=== PATIENT | female | born 1950 | race Caucasian/White ===

== ENCOUNTER 2017-03-24 05:35 | Observation (INO) | payer OTHER, MEDICARE ==
[2017-03-24] MEDS ORDERED: PHENAZOPYRIDINE HCL 200 MG TAB PO ONE ×2 (05:59→06:00)
[2017-03-24] MEDS ORDERED: ceFAZolin 2 GM/DEXTROSE 100 ML IV ONE ×2 (05:59→06:00)
[2017-03-24] MEDS ORDERED: LR 1,000 ML IV ONE (06:07)
[2017-03-24] MEDS ORDERED: LIDOCAINE 1% 2 ML INJ ID PRN (06:07)
--- NOTE | 2017-03-24 07:14 | PDHPUP ---
History & Physical Update H&P update statement: This history and physical update is based on an assessment of the patient which was completed after admission or registration (within 24 hours), but prior to the surgery/procedure. H&P update: H&P reviewed & patient examined, no change in patient's condition since H&P completed
[2017-03-24] MEDS ORDERED: fentaNYL 100 MCG/2 ML INJ ONE ×2 (07:17→08:15)
[2017-03-24] MEDS ORDERED: MIDAZOLAM 2 MG/2 ML VIAL ONE ×2 (07:18→07:55)
[2017-03-24] MEDS ORDERED: PROPOFOL/EMULSION 500 MG/50 ML BOTTLE IV ONE ×2 (07:18→08:09)
[2017-03-24] MEDS ORDERED: BUPIVACAINE 0.5% 30 ML SDV ONE (07:35)
[2017-03-24] MEDS ORDERED: METOCLOPRAMIDE 10 MG/2 ML VIAL ONE (08:09)
[2017-03-24] MEDS ORDERED: KETOROLAC 30 MG/1 ML SDV ONE (08:09)
[2017-03-24] MEDS ORDERED: LIDOCAINE HCL 160 MG/4 ML LTA KIT TP ONE (08:09)
[2017-03-24] MEDS ORDERED: RANITIDINE 50 MG/2 ML VIAL ONE (08:09)
[2017-03-24] MEDS ORDERED: ONDANSETRON 4 MG/2 ML VIAL ONE (08:09)
[2017-03-24] MEDS ORDERED: ROCURONIUM 100 MG/10 ML VIAL ONE (08:09)
[2017-03-24] MEDS ORDERED: LIDOCAINE 2% 5 ML SDV ONE (08:09)
[2017-03-24] MEDS ORDERED: DEXAMETHASONE 4 MG/ML VIAL ONE (08:09)
[2017-03-24] MEDS ORDERED: epHEDrine SULFATE 10 MG/ML SYR ONE (08:19)
--- NOTE | 2017-03-24 08:22 | PDANEPAE ---
ANE Past Medical History - Cardiovascular History Hx Hypertension: Yes Hx Arrhythmias: No Hx Chest Pain: No Hx Coronary Artery / Peripheral Vascular Disease: No Hx CHF / Valvular Disease: No Hx Palpitations: No - Pulmonary History Hx COPD: No Hx Asthma/Reactive Airway Disease: No Hx Recent Upper Respiratory Infection: No Hx Oxygen in Use at Home: No Hx Sleep Apnea: No Sleep Apnea Screening Result - Last Documented: Negative - Neurologic History Hx Cerebrovascular Accident: No Hx Seizures: No Hx Dementia: No - Endocrine History Hx Diabetes: No - Renal History Hx Renal Disorders: No - Liver History Hx Hepatic Disorders: No - Neurological & Psychiatric Hx Hx Neurological and Psychiatric Disorders: No Neurological / Psychiatric History Comment: mild depression - Cancer History Hx Cancer: No - Congenital Disorder History Hx Congenital Disorders: No - GI History Hx Gastrointestinal Disorders: Yes Gastrointestinal History Comment: reflux - Other Health History Other Health History: none, - Chronic Pain History Chronic Pain: No - Surgical History Prior Surgeries: colonscopy, left hand surgery ANE Review of Systems Review of Systems: - Exercise capacity METS (RN): 4 METS ANE Patient History - Allergies Allergies/Adverse Reactions: adhesive tape Allergy (Verified 03/23/17 13:56) - Home Medications Home Medications: Sertraline HCl [Zoloft 50mg (*)] 50 mg PO HS 12/31/09 [Last Taken 03/23/17 23:00 ] Aspirin [Aspirin 81mg (*)] 81 mg PO DAILY 02/18/17 [Last Taken 03/17/17] Losartan Potassium [Cozaar 25 mg (*)] 25 mg PO DAILY 02/18/17 [Last Taken 04:00] Ranitidine HCl [Zantac] 300 mg PO HS 02/18/17 [Last Taken 03/23/17 23:00] - NPO status NPO Since - Liquids (Date): 03/24/17 NPO Since - Liquids (Time): 04:00 NPO Since - Solids (Date): 03/23/17 NPO Since - Solids (Time): 09:20 - Smoking Hx Smoking Status: Never smoked - Family Anes Hx Family Hx Anesthesia Complications: none ANE Labs/Vital Signs - Vital Signs Blood Pressure: 155/92 Heart Rate: 80 Respiratory Rate: 16 O2 Sat (%): 93 Height: 170.18 cm Weight: 74.843 kg ANE Physical Exam - Airway Neck exam: FROM - Pulmonary Pulmonary: no respiratory distress, no rales or rhonchi, clear to auscultation - Cardiovascular Cardiovascular: regular rate and rhythym, no murmur, rub, or gallop - ASA Status ASA Status: III ANE Anesthesia Plan Anesthesia Plan: general endotracheal anesthesia
[2017-03-24] MEDS ORDERED: SUGAMMADEX SODIUM 200 MG/2 ML VIAL IVP ONE (08:46)
[2017-03-24] MEDS ORDERED: LR 500 ML IV PRN (08:49)
[2017-03-24] MEDS ORDERED: ONDANSETRON 4 MG/2 ML VIAL IVP PRN ×2 (08:49→09:27)
[2017-03-24] MEDS ORDERED: ALBUTEROL 3 ML DEYVIAL IH PRN (08:49)
[2017-03-24] MEDS ORDERED: NALOXONE HCL 0.4 MG/ML INJ IVP PRN (08:49)
[2017-03-24] MEDS ORDERED: ENALAPRILAT DIHYDRATE 1.25 MG/ML VIAL IVP PRN (08:49)
[2017-03-24] MEDS ORDERED: PROMETHAZINE HCL 25 MG/ML INJ IVP PRN ×2 (08:49→09:30)
[2017-03-24] MEDS ORDERED: DEXAMETHASONE 4 MG/ML VIAL IVP PRN (08:49)
[2017-03-24] MEDS ORDERED: fentaNYL 100 MCG/2 ML INJ IVP PRN (08:49)
[2017-03-24] MEDS ORDERED: HYDROCODONE/APAP 5/325 TAB PO PRN (09:27)
[2017-03-24] MEDS ORDERED: LR 1,000 ML IV SCH (09:30)
[2017-03-24] MEDS ORDERED: HYDROmorphONE/DILAUDID 1 MG/ML INJ IVP PRN (09:30)
[2017-03-24] MEDS ORDERED: DIAZEPAM 10 MG/2 ML SYR IVP PRN (09:30)
--- NOTE | 2017-03-24 09:49 | POSTANESTH ---
Post Anesthetic Evaluation Cardiovascular Status: Normal, Stable Respiratory Status: Normal, Stable Level of Consciousness/Mental Status: Can Participate in Eval Pain Control: Adequate, Prn Tx Ordered Nausea/Vomiting Control: Adequate, Prn Tx Ordered Complications Possibly Related to Anesthesia: None Noted
--- NOTE | 2017-03-24 14:32 | POSTOPPROG ---
Post Op Note Date of Operation: 03/24/17 Surgeon: Ayad Gloria Hha: Elissa Pedroza Anesthesiologist: Demetris Anesthesia: GET(General Endotracheal) Pre-op Diagnosis: cystocele, rectocele Post-op Diagnosis: same Procedure: sacrocolpopexy, cysto Findings: ureters function at end of case Inf/Abcess present in the surg proc area at time of surgery?: No EBL: Minimal Complications: None
[2017-03-24] MEDS: SIMETHICONE 80 MG TAB CHEW PO SCH ×2 (15:50→22:51)
[2017-03-24] MEDS: KETOROLAC 15 MG/1 ML SDV IVP SCH ×2 (15:56→22:15)
[2017-03-24] MEDS: LOSARTAN POTASSIUM 25 MG TAB PO SCH (20:23)
[2017-03-24] MEDS ORDERED: FAMOTIDINE 20 MG TAB PO SCH (21:00)
[2017-03-24] MEDS ORDERED: SERTRALINE HCL 50 MG TAB PO SCH (21:00)
[2017-03-25] MEDS: DOCUSATE SODIUM 100 MG CAP PO SCH ×2 (02:04→08:22)
--- NOTE | 2017-03-25 02:40 | GOP ---
[f rep st] OPERATIVE REPORT DATE OF OPERATION: 03/24/2017 SURGEON: Ayad Gloria MD CASE MANAGEMENT ASSISTANT: Elissa Pedroza CFA ANESTHESIA: General. PREOPERATIVE DIAGNOSIS: 1. Cystocele. 2. Rectocele. 3. Vaginal vault prolapse. POSTOPERATIVE DIAGNOSIS: 1. Cystocele. 2. Rectocele. 3. Vaginal vault prolapse. PROCEDURE PERFORMED: 1. Robotic-assisted laparoscopic sacrocolpopexy with mesh. 2. Repair of cystocele and rectocele. 3. Cystoscopy. FINDINGS: SPECIMENS: None. ESTIMATED BLOOD LOSS: Scant. DESCRIPTION OF PROCEDURE: The patient was taken to the operating room, where she was identified. Ge neral anesthesia was administered with IV adequate. She was placed in the lithotomy position and pre pared and draped in normal sterile fashion. A Kaba catheter was placed in her bladder. A 1 cm infraumbilical incision was made with a scalpel. The Veress needle with the CO2 gas flowing w as advanced into the peritoneal cavity. The abdomen was then insufflated with carbon dioxide gas. T he 12 mm trocar, followed by the laparoscope, was then inserted. The upper abdomen was unremarkable. Two lateral ports were placed on either side under direct visualization. She then was placed in Tr endelenburg position, and the da Radha robot docked on the left side. The instruments were then brou ght into the abdominal cavity under direct visualization. A stent was then placed in the vagina. The bladder was dissected off the anterior vaginal wall, down to the level of bladder neck. The rectovaginal space was then entered and the rectum dissected off the posterior vaginal wall down to the level of the perineal body. Measurements were then obtained, and the mesh trimmed to size. The sigmoid colon was then retracted laterally. The peritoneum of the sacral promontory was incised. The fat pad was gently dissected off the anterior longitudinal ligament. The mesh was then brought into the abdominal cavity. Three sutures of 4-0 Saltese-Victor Manuel were used to attach the distal posterior m esh to the perineal body. Two additional rows of Saltese-Victor Manuel sutures were placed posteriorly. Three ro ws were placed anteriorly to suture the mesh down to the level of bladder neck and laterally to the p aravaginal tissue. The stent was then removed. The sacral arm of the mesh placed over the promontor y and the tension adjusted. I then scrubbed back into the case to examine the vagina. The tension was further adjusted to resolv e the cystocele and rectocele without undue tension on the vagina. Three sutures of 2-0 Saltese-Victor Manuel wer e used to attach the sacral arm of the mesh to the anterior longitudinal ligament at the level of the upper first sacral vertebral body, below the intervertebral disk space. The excess mesh was then tr immed. The peritoneum was then closed over the entire mesh. The robot was then undocked. The fasci a was closed with 0 Vicryl, skin with 4-0 Monocryl and surgical adhesive. Cystoscopy was then performed. Both ureters had vigorous jets of urine. There was no evidence of me sh and no suture within the bladder. No obvious pathology was seen. Vaginal packing was then placed . Anesthesia was reversed. The patient taken the PACU awake, in stable condition. COMPLICATIONS: None. DISPOSITION: Patient stable to PACU. /[id number]/MODL
[2017-03-25] MEDS: KETOROLAC 15 MG/1 ML SDV IVP SCH (04:48)
[2017-03-25] MEDS: LOSARTAN POTASSIUM 25 MG TAB PO SCH (08:22)
[2017-03-25 08:24] VITALS: BP 129/71
[2017-03-25] MEDS: SIMETHICONE 80 MG TAB CHEW PO SCH (08:24)
[2017-03-25 10:35] VITALS: PULSE 73; RESP 17; TEMP 98.1; O2SAT 91
== END 2017-03-25 13:00 | disposition home or self-care (01) ==
LOC: FSGY 05:35 → F3E 09:27 → FOB 11:05
PROVIDERS: ADMIT Obstetrics & Gynecology; ATTEND Obstetrics & Gynecology
PROC: 0UUG4JZ Supplement Vagina with Synthetic Substitute, Percutaneous Endoscopic Approach (ICD-10-PCS; principal; 2017-03-24 07:15)
PROC: 0JQC0ZZ Repair Pelvic Region Subcutaneous Tissue and Fascia, Open Approach (ICD-10-PCS; principal; 2017-03-24 07:15)
PROC: 0USG4ZZ Reposition Vagina, Percutaneous Endoscopic Approach (ICD-10-PCS; principal; 2017-03-24 07:15)
PROC: 8E0W8CZ Robotic Assisted Procedure of Trunk Region, Via Natural or Artificial Opening Endoscopic (ICD-10-PCS; principal; 2017-03-24 07:15)
DX: N99.3 Prolapse of vaginal vault after hysterectomy (principal); N81.11 Cystocele, midline; N81.6 Rectocele; F32.9 Major depressive disorder, single episode, unspecified; I10 Essential (primary) hypertension
CPT/HCPCS: 57250; 57425; C1763; J0690; J1100; J1885; J2250; J2405; J2704; J2765; J2780; J3010